=== PATIENT | female | born 1955 ===

== ENCOUNTER 2017-09-26 06:39 | Day surgery (SDC) | payer BC, OTHER ==
[2017-09-22 14:08] VITALS: BMI 41.0
[2017-09-26 07:27] LABS: BASO # 0.04 K/mm3 (0.0-2.0); BASO % 0.6 % (0.0-3.0); EOS # 0.2 (0.0-0.7); EOS % 2.6 % (1.5-5.0); GRAN # 4.63 (1.4-6.5); GRAN % 63.6 % (50.0-68.0); HEMOGLOBIN 12.3 g/dL (14.0-18.0); LYMPH # 1.7 (1.2-3.4); LYMPH % 23.8 % (22.0-35.0); MEAN CELL VOLUME 88.6 fl (80.0-105.0); MEAN CORPUSCULAR HEMOGLOBIN 29.9 pg (25.0-35.0); MEAN CORPUSCULAR HGB CONC 33.8 g/dl (31.0-37.0); MEAN PLATELET VOLUME 9.3 fl (7.0-11.0); MONO # 0.7 (0.1-0.6); MONO % 9.4 % (1.0-6.0); RBC 4.11 10^6/uL (3.5-6.1); RED CELL DISTRIBUTION WIDTH 12.4 % (11.5-14.5); WHITE BLOOD COUNT 7.3 10^3/ul (4.5-11.0)
[2017-09-26 07:36] LABS: BLOOD UREA NITROGEN 20 mg/dL (7-21); CALCIUM 9.2 mg/dL (8.4-10.5); GFR AFRICAN-AMERICAN > 60; GFR NON-AFRICAN AMERICAN > 60; HDL CHOLESTEROL 45 mg/dL (29-60)
[2017-09-26 07:41] LABS: INR 0.93 (0.93-1.08); PARTIAL THROMBOPLASTIN TIME 38.4 Seconds (25.1-36.5); PROTHROMBIN TIME 10.7 SECONDS (9.4-12.5)
[2017-09-26 07:47] LABS: LDL CHOLESTEROL 66 mg/dL (0-129)
[2017-09-26] MEDS ORDERED: Midazolam 2 MG/2 ML VIAL ONE ×3 (08:47→09:38)
[2017-09-26] MEDS ORDERED: DiphenhydrAMINE 50 mg/ml Inj ONE (09:41)
[2017-09-26] MEDS ORDERED: Bacitracin 500 Units/gm Oint Foilpak UD TOP ONE (10:07)
[2017-09-26] MEDS ORDERED: Sodium Chloride 0.9% 1,000 ML IV SCH (10:15)
[2017-09-26 10:34] VITALS: TEMP 97.8
--- NOTE | 2017-09-26 12:18 | CARD ---
APPROVED REPORT EKG Measurement Heart [id number] <Conclusion> Sinus bradycardia PRWP Nonspecific T wave abnormality
[2017-09-26] MEDS ORDERED: Bacitracin 500 Units/gm Oint Foilpak UD ONE (13:54)
[2017-09-26 14:29] VITALS: O2SAT 98
[2017-09-26 14:57] VITALS: BP 134/78; PULSE 65; RESP 18
--- NOTE | 2017-09-26 16:50 | CARDCATH ---
PROCEDURE DATE: 09/26/2017 INDICATIONS: Kim Amin is a 61-year-old female who was having symptoms of unstable angina. She has prior history of CAD with stenting of left circumflex coronary artery that was done about 5 years ago. She was recently admitted for chest pain, was ruled out for ACS and subsequently discharged, who underwent a stress test which was questionable for ischemic changes in the inferolateral wall. She was therefore brought to the [facility] for further evaluation and treatment. PROCEDURE PERFORMED: Left heart catheterization with selective left and right coronary angiogram, right and left distal radial arterial access approach, fractional flow reserve of mid right coronary artery 65% stenosis physiologically nonsignificant at 0.93, wristband for hemostasis. ANGIOGRAPHIC FINDINGS: Left main is a large-sized vessel, bifurcates into LAD and circumflex. LAD is a large-sized vessel, it gives off two medium-sized diagonal branches, has a mid 45%-50% stenosis. Left circumflex runs in the AV groove. Distal stent widely patent, gives off two medium-sized obtuse marginal branches. OM1 has a mild nonobstructive disease. RCA is a large-sized vessel, has a mid 65% stenosis, bifurcates in to PDA and PLV branches, ejection fraction normal, EDP 18. Intervention performed. FFR of the RCA was done which was physiologically nonsignificant at 0.93. IMPRESSION: Moderate mid right coronary artery stenosis, physiologically nonsignificant with fractional flow reserve 0.93, left circumflex stent patent. RECOMMENDATIONS: Aggressive medical management, risk factor modification, guideline-directed therapy for CAD. The patient can be discharged home in 4 hours. Follow up with Dr. Chan in 1 to 2 weeks' time. King Chan MD
== END 2017-09-26 15:00 | disposition home or self-care (01) ==
LOC: EDSEX 06:39 → CATH 06:39
PROVIDERS: ATTEND Internal Medicine Interventional Cardiology
DX: I25.110 Atherosclerotic heart disease of native coronary artery with unstable angina pectoris (principal)
CPT/HCPCS: 36415; 80048; 80061; 85025; 85610; 85730; 86850; 86900; 93005; 93458; 93571; 99152; C1769 ×2; C1887 ×2; C1894; J1200; J2250; J3010; J7030